=== PATIENT | female | born 1975 | race Caucasian/White ===

== ENCOUNTER → 2021-11-10 | Emergency (ER) | payer OTHER ==
[~2021-11-10] VITALS: Ht 157.5 cm; Wt 53.5 kg
[~2021-11-10] MED LIST: ZYRTEC10 M3 PO
== END | disposition left against medical advice (07) ==
LOC: ER 13:25
DX: Z53.21 Procedure and treatment not carried out due to patient leaving prior to being seen by health care provider (principal)